=== PATIENT | female | born 1950 | race Caucasian/White ===

== ENCOUNTER 2017-05-31 07:10 | Observation (INO) | payer MEDICARE, BC ==
--- NOTE | 2017-05-31 07:21 | EDM.PDOC ---
ED HPI GENERAL MEDICAL PROBLEM - General Chief Complaint: Chest Pain Stated Complaint: chest pressure, dizziness Time Seen by Provider: 05/31/17 07:20 Source of Information: Reports: Patient History Limitations: Reports: No Limitations - History of Present Illness INITIAL COMMENTS - FREE TEXT/NARRATIVE: Patient is a 66-year-old female who presents to the ER with chief complaint of not feeling her usual self she feels chest tightness and also a tightness around her arms. Onset: Today Location: Reports: Chest Quality: Reports: Pressure Severity: Mild Improves with: Reports: None Worsens with: Reports: None Context: Reports: Other (Illness) Associated Symptoms: Reports: Chest Pain (Chest pressure) Treatments FACILITIES ADMINISTRATOR: Reports: Acetaminophen, Aspirin chest pain Pain Score (Numeric/FACES): 3 - Related Data Allergies Allergy/AdvReac Type Severity Reaction Status Date / Time Sulfa (Sulfonamide Allergy Itching Verified 05/31/17 07:39 Antibiotics) Home Meds: Home Meds Aspirin/Acetaminophen/Caffeine [Ra Pain Reliever Tablet] 1 each PO Q4HR PRN [History] Social & Family History - Tobacco Use Years of Tobacco use: 40 Second Hand Smoke Exposure: No - Alcohol Use Days Per Week of Alcohol Use: 1 (2 times per month, no previous DWI, etc.) Number of Drinks Per Day: 4 (Usually beer) Total Drinks Per Week: 4 - Recreational Drug Use Recreational Drug Use: No Drug Use in Last 12 Months: No Recreational Drug Last Use: 3 sodas per week, 1 coffee per day - Living Situation & Occupation Living situation: Reports: Occupation: Employed ED ROS GENERAL - Review of Systems Review Of Systems: See Below Constitutional: Reports: Weakness (Arms), Fatigue HEENT: Reports: No Symptoms Respiratory: Reports: No Symptoms Cardiovascular: Reports: Blood Pressure Problem, Lightheadedness Endocrine: Reports: No Symptoms GI/Abdominal: Reports: No Symptoms : Reports: Frequency Musculoskeletal: Reports: Arm Pain (Arm pressure), Muscle Pain (History of muscle spasms) Skin: Reports: No Symptoms Neurological: Reports: No Symptoms Psychiatric: Reports: No Symptoms ED EXAM, GENERAL - Physical Exam Exam: See Below Exam Limited By: No Limitations General Appearance: Alert, WD/WN, Mild Distress, Moderate Distress Ears: Normal External Exam, Normal Canal, Hearing Grossly Normal, Normal TMs Ear Exam: Bilateral Ear: Auricle Normal, Canal Normal, TM normal Nose: Normal Inspection Throat/Mouth: Normal Inspection, Normal Lips, Normal Teeth, Normal Gums, Normal Oropharynx, Normal Voice, No Airway Compromise Head: Atraumatic, Normocephalic Neck: Normal Inspection, Supple, Non-Tender, Full Range of Motion Respiratory/Chest: No Respiratory Distress, Lungs Clear, Normal Breath Sounds, No Accessory Muscle Use, Chest Non-Tender Cardiovascular: Regular Rate, Rhythm GI/Abdominal: Normal Bowel Sounds, Soft, Non-Tender, No Organomegaly, No Distention, No Abnormal Bruit, No Mass (Female) Exam: Deferred Rectal (Female) Exam: Deferred (`) Back Exam: Normal Inspection, Full Range of Motion, NT Extremities: Normal Inspection, Normal Range of Motion, Non-Tender, Normal Capillary Refill, No Pedal Edema Psychiatric: Normal Affect, Normal Mood Skin Exam: Warm, Dry, Intact, Normal Color, No Rash Course - Vital Signs Last Recorded V/S: Last Vital Signs Temp 98.8 F 05/31/17 07:30 Pulse 67 05/31/17 08:06 Resp 17 05/31/17 07:45 BP 149/84 H 05/31/17 08:06 Pulse Ox 99 05/31/17 07:45 - Orders/Labs/Meds Orders: Active Orders 24 hr Category Date Time Status Patient Status [ADT] Routine ADT 05/31/17 08:35 Active Antiembolic Devices [RC] .Routine Care 05/31/17 08:38 Active Bedrest Bathroom Privileges [RC] ASDIRECTED Care 05/31/17 08:34 Active EKG Documentation Completion [RC] ASDIRECTED Care 05/31/17 07:13 Active May Shower [RC] ASDIRECTED Care 05/31/17 08:34 Active Up With Assistance [RC] ASDIRECTED Care 05/31/17 08:34 Active VTE/DVT Education [RC] PER UNIT ROUTINE Care 05/31/17 08:38 Active Vital Signs [RC] Q4H Care 05/31/17 08:35 Active Heart Healthy Diet [DIET] Diet 05/31/17 Lunch Active Chest 1V Frontal [CR] Stat Exams 05/31/17 07:13 Taken Sodium Chloride 0.9% [Saline Flush] Med 05/31/17 07:14 Active 10 ml FLUSH ASDIRECTED PRN DVT/VTE Prophylaxis Reflex [OM.PC] Routine Oth 05/31/17 08:34 Ordered Saline Lock Insert [OM.PC] Routine Oth 05/31/17 07:14 Ordered Medication Orders Sodium Chloride (Saline Flush) 10 ml FLUSH ASDIRECTED PRN PRN Reason: Keep Vein Open Last Admin: 05/31/17 08:07 Dose: 10 ml Labs: Laboratory Tests 05/31/17 05/31/17 05/31/17 Range/Units 07:35 07:35 07:35 WBC 7.5 (4.0-10.2) K/uL RBC 4.57 (3.77-5.09) M/uL Hgb 14.1 (11.7-15.5) g/dL Hct 42.0 (34.0-46.0) % MCV 91.9 (84.0-98.0) fL MCH 30.9 (28.2-33.3) pg MCHC 33.6 (31.7-36.0) g/dL RDW 12.4 (11.2-14.1) % Plt Count 231 (150-350) K/uL Neut % (Auto) 68.7 (45.0-80.0) % Lymph % (Auto) 19.2 (10.0-50.0) % [place] % (Auto) 7.9 (2.0-14.0) % Eos % (Auto) 3.9 (0.0-5.0) % Baso % (Auto) 0.3 (0.0-2.0) % Neut # (Auto) 5.17 (1.40-7.00) K/uL Lymph # (Auto) 1.44 (0.50-3.50) K/uL [place] # (Auto) 0.59 (0.00-1.00) K/uL Eos # (Auto) 0.29 (0.00-0.50) K/uL Baso # (Auto) 0.02 (0.00-0.20) K/uL Sodium 140 (136-145) mmol/L Potassium 4.0 (3.5-5.1) mmol/L Chloride 105 (98-107) mmol/L Carbon Dioxide 25.7 (21.0-32.0) mmol/L BUN 18 (7-18) mg/dL Creatinine 0.74 (0.51-1.17) mg/dL Est Cr Clr Drug Dosing 62.83 mL/min Estimated GFR (MDRD) > 60 mL/min Glucose 100 (74-106) mg/dL Hemoglobin A1c (4.3-5.7) % Calcium 8.9 (8.5-10.1) mg/dL Magnesium 2.0 (1.8-2.4) mg/dL Total Bilirubin 0.5 (0.2-1.0) mg/dL AST 21 (15-37) U/L ALT 25 (12-78) U/L Alkaline Phosphatase 80 (46-116) IU/L Troponin I 0.000 (0.000-0.056) ng/mL Total Protein 7.1 (6.4-8.2) g/dL Albumin 3.6 (3.4-5.0) g/dL Triglycerides 195 H (30-150) mg/dL Cholesterol 275 H (100-200) mg/dL LDL Cholesterol, Calc 191 H (0-100) mg/dL HDL Cholesterol 45 (40-60) mg/dL TSH, Ultra Sensitive 3.050 (0.358-3.740) mIU/mL 05/31/17 Range/Units 07:35 WBC (4.0-10.2) K/uL RBC (3.77-5.09) M/uL Hgb (11.7-15.5) g/dL Hct (34.0-46.0) % MCV (84.0-98.0) fL MCH (28.2-33.3) pg MCHC (31.7-36.0) g/dL RDW (11.2-14.1) % Plt Count (150-350) K/uL Neut % (Auto) (45.0-80.0) % Lymph % (Auto) (10.0-50.0) % [place] % (Auto) (2.0-14.0) % Eos % (Auto) (0.0-5.0) % Baso % (Auto) (0.0-2.0) % Neut # (Auto) (1.40-7.00) K/uL Lymph # (Auto) (0.50-3.50) K/uL [place] # (Auto) (0.00-1.00) K/uL Eos # (Auto) (0.00-0.50) K/uL Baso # (Auto) (0.00-0.20) K/uL Sodium (136-145) mmol/L Potassium (3.5-5.1) mmol/L Chloride (98-107) mmol/L Carbon Dioxide (21.0-32.0) mmol/L BUN (7-18) mg/dL Creatinine (0.51-1.17) mg/dL Est Cr Clr Drug Dosing mL/min Estimated GFR (MDRD) mL/min Glucose (74-106) mg/dL Hemoglobin A1c 6.0 H (4.3-5.7) % Calcium (8.5-10.1) mg/dL Magnesium (1.8-2.4) mg/dL Total Bilirubin (0.2-1.0) mg/dL AST (15-37) U/L ALT (12-78) U/L Alkaline Phosphatase (46-116) IU/L Troponin I (0.000-0.056) ng/mL Total Protein (6.4-8.2) g/dL Albumin (3.4-5.0) g/dL Triglycerides (30-150) mg/dL Cholesterol (100-200) mg/dL LDL Cholesterol, Calc (0-100) mg/dL HDL Cholesterol (40-60) mg/dL TSH, Ultra Sensitive (0.358-3.740) mIU/mL Meds: Medications Generic Name Dose Route Start Last Admin Trade Name Freq PRN Reason Stop Dose Admin Sodium Chloride 10 ml 05/31/17 07:14 05/31/17 08:07 Saline Flush FLUSH 10 ml ASDIRECTED PRN Administration Keep Vein Open Discontinued Medications Generic Name Dose Route Start Last Admin Trade Name Freq PRN Reason Stop Dose Admin Metoprolol Tartrate 5 mg 05/31/17 07:53 05/31/17 08:06 Lopressor IVPUSH 05/31/17 07:54 5 mg ONETIME ONE Administration Departure - Departure Time of Disposition: 09:00 Disposition: Refer to Observation Clinical Impression: Atypical chest pain - Discharge Information - My Orders Last 24 Hours: My Active Orders 05/31/17 07:13 EKG Documentation Completion [RC] ASDIRECTED Chest 1V Frontal [CR] Stat 05/31/17 07:14 Sodium Chloride 0.9% [Saline Flush] 10 ml FLUSH ASDIRECTED PRN Saline Lock Insert [OM.PC] Routine 05/31/17 08:34 Bedrest Bathroom Privileges [RC] ASDIRECTED May Shower [RC] ASDIRECTED Up With Assistance [RC] ASDIRECTED DVT/VTE Prophylaxis Reflex [OM.PC] Routine 05/31/17 08:35 Patient Status [ADT] Routine Vital Signs [RC] Q4H 05/31/17 08:38 Antiembolic Devices [RC] .Routine VTE/DVT Education [RC] PER UNIT ROUTINE 05/31/17 Lunch Heart Healthy Diet [DIET] - Assessment/Plan Admission H&P: Please use this note as an admission H&P Last 24 Hours: My Active Orders 05/31/17 07:13 EKG Documentation Completion [RC] ASDIRECTED Chest 1V Frontal [CR] Stat 05/31/17 07:14 Sodium Chloride 0.9% [Saline Flush] 10 ml FLUSH ASDIRECTED PRN Saline Lock Insert [OM.PC] Routine 05/31/17 08:34 Bedrest Bathroom Privileges [RC] ASDIRECTED May Shower [RC] ASDIRECTED Up With Assistance [RC] ASDIRECTED DVT/VTE Prophylaxis Reflex [OM.PC] Routine 05/31/17 08:35 Patient Status [ADT] Routine Vital Signs [RC] Q4H 05/31/17 08:38 Antiembolic Devices [RC] .Routine VTE/DVT Education [RC] PER UNIT ROUTINE 05/31/17 Lunch Heart Healthy Diet [DIET]
[2017-05-31] MEDS ORDERED: Metoprolol Tartrate 5 MG/5 ML SDV IVPUSH ONE (07:53)
[2017-05-31 08:03] LABS: CHLORIDE,CL 105 mmol/L (98-107); SODIUM,NA 140 mmol/L (136-145)
[2017-05-31] MEDS: Sodium Chloride 0.9% 10 ML Syringe FLUSH PRN ×2 (08:07→20:48)
[2017-06-01] MEDS: Sodium Chloride 0.9% 10 ML Syringe FLUSH PRN (09:17)
[2017-06-01 12:36] VITALS: BP 118/71
--- NOTE | 2017-06-01 14:34 | PCM.PN ---
- General Info Date of Service: 06/01/17 Functional Status: Reports: Pain Controlled, Other (arms still feel heavy) - Review of Systems General: Reports: Weakness, Other (dizziness) HEENT: Reports: Other (ears itchey) Pulmonary: Reports: No Symptoms Cardiovascular: Reports: No Symptoms Gastrointestinal: Reports: No Symptoms Genitourinary: Reports: No Symptoms Musculoskeletal: Reports: Neck Pain, Shoulder Pain Skin: Reports: No Symptoms Neurological: Reports: Dizziness Psychiatric: Reports: Depression, Anxiety - Patient Data Vitals - Most Recent: Last Vital Signs Temp 98.9 F 06/01/17 12:00 Pulse 79 06/01/17 12:00 Resp 14 06/01/17 12:00 BP 118/71 06/01/17 12:00 Pulse Ox 94 L 06/01/17 12:00 Weight - Most Recent: 177 lb I&O - Last 24 Hours: Intake & Output 05/31/17 06/01/17 06/01/17 22:59 06:59 14:59 Intake Total 200 800 600 Balance 200 800 600 Lab Results Last 24 Hours: Laboratory Results - last 24 hr 05/31/17 Range/Units 19:35 Troponin I 0.000 (0.000-0.056) ng/mL Med Orders - Current: Current Medications Sodium Chloride (Saline Flush) 10 ml FLUSH ASDIRECTED PRN PRN Reason: Keep Vein Open Last Admin: 06/01/17 09:17 Dose: 10 ml Discontinued Medications Metoprolol Tartrate (Lopressor) 5 mg IVPUSH ONETIME ONE Stop: 05/31/17 07:54 Last Admin: 05/31/17 08:06 Dose: 5 mg - Exam General: Alert, Cooperative, No Acute Distress HEENT: Pupils Equal, Pupils Reactive, EOMI, Mucous Membr. Moist/[place], Other ( ear canals not red, scant wax, TM non reddened) Neck: Trachea Midline, No JVD Lungs: Clear to Auscultation, Normal Respiratory Effort Cardiovascular: Regular Rate, Regular Rhythm GI/Abdominal Exam: Normal Bowel Sounds, Soft, Non-Tender, No Distention, No Mass (Female) Exam: Deferred Back Exam: Normal Inspection Extremities: Normal Inspection, Non-Tender, No Pedal Edema Skin: Warm, Dry, Intact Wound/Incisions: Healing Well Neurological: Other (horizonal nystagmus to the left) Psy/Mental Status: Alert, Anxious, Depressed - Problem List & Annotations (1) Atypical chest pain SNOMED Code(s): 479219136 Code(s): R07.89 - OTHER CHEST PAIN Status: Acute Current Visit: Yes (2) Leukocytosis SNOMED Code(s): 591911174 Code(s): D72.829 - ELEVATED WHITE BLOOD CELL COUNT, UNSPECIFIED Status: Acute Priority: Medium Current Visit: No Onset Date: 01/08/14 Annotation /Comment:: Persistent WBC elevation likely secondary to yesterday's Depo-Medrol injection. Repeat CBC at followup. (3) CHF, Congestive heart failure SNOMED Code(s): 90230688 Code(s): I50.9 - HEART FAILURE, UNSPECIFIED Status: Chronic Priority: High Current Visit: No Onset Date: 01/09/14 Annotation/Comment:: Newly diagnosed today with echocardiogram to be conducted on an outpatient basis with further cardiac workup, etc. as above. Work excuse given from 01/08-01/13 (4) COPD, Mild chronic obstructive pulmonary disease SNOMED Code(s): 624003528 Code(s): J44.9 - CHRONIC OBSTRUCTIVE PULMONARY DISEASE, UNSPECIFIED Status : Chronic Priority: Medium Current Visit: No Annotation/Comment:: COPD by chest x-ray. PFTs should be conducted once her cardiac status has been determined. Tobacco cessation encouraged with information provided in the emergency room yesterday (5) HTN, Benign hypertension SNOMED Code(s): 21506431 Code(s): I10 - ESSENTIAL (PRIMARY) HYPERTENSION Status: Chronic Priority : High Current Visit: No Onset Date: 01/08/14 Annotation/Comment:: Newly diagnosed with close observation by her regular provider with repeat blood work as per discharge instructions (6) Hyperlipidemia SNOMED Code(s): 61089835 Code(s): E78.5 - HYPERLIPIDEMIA, UNSPECIFIED Status: Chronic Priority: High Current Visit: No Onset Date: 01/09/14 Annotation/Comment:: Newly diagnosed today with Zocor to be initiated on an outpatient basis. Note additional hyperglycemia, however normal glycosylated hemoglobin with improvement of her sugars likely with compliance with her low-cholesterol diet (7) Mixed anxiety and depressive disorder SNOMED Code(s): 847850041 Code(s): F41.8 - OTHER SPECIFIED ANXIETY DISORDERS Status: Chronic Priority: High Current Visit: No Annotation/Comment:: The patient is requesting treatment for her depression since this has progressed since the of her mother as above. Emotional support was provided. Additionally counseling as needed on an outpatient basis (8) Osteoarthritis SNOMED Code(s): 353433686 Code(s): M19.90 - UNSPECIFIED OSTEOARTHRITIS, UNSPECIFIED SITE Status: Chronic Priority: High Current Visit: No Onset Date: 01/08/14 Annotation /Comment:: Her arthritis and suprascapular nerve inflammation is likely the etiology of her current symptoms. A mixture of 1 ml of Depo-Medrol, 80 mg/mL and 2.0 ml of 1% Xylocaine was given as a trigger point yesterday in the emergency room with minimal improvement. She does respond to chiropractic treatment and acupuncture by her history with further followup depending on her clinical course. Add Flexeril as a muscle relaxant. She gets better response with aspirin rather than ibuprofen by her history. Additional physical therapy consultation as needed - Problem List Review Problem List Initiated/Reviewed/Updated: Yes - Plan Plan:: 06/01/17 Lainey Hawk MD Feeling better. Troponins negative. Discussed high blood pressure and depression. She feels well enough to go home. Follow up in the clinic.
--- NOTE | 2017-06-01 14:49 | PCM.DCSUM1 ---
Discharge Summary - Discharge Data Discharge Date: 06/01/17 Discharge Disposition: Home, Self-Care 01 Condition: Good - Discharge Diagnosis/Problem(s) (1) Atypical chest pain SNOMED Code(s): 941150305 ICD Code: R07.89 - OTHER CHEST PAIN Status: Acute Current Visit: Yes (2) Leukocytosis SNOMED Code(s): 746311082 ICD Code: D72.829 - ELEVATED WHITE BLOOD CELL COUNT, UNSPECIFIED Status: Acute Priority: Medium Current Visit: No Onset Date: 01/08/14 Problem Details: Persistent WBC elevation likely secondary to yesterday's Depo-Medrol injection. Repeat CBC at followup. (3) CHF, Congestive heart failure SNOMED Code(s): 91890463 ICD Code: I50.9 - HEART FAILURE, UNSPECIFIED Status: Chronic Priority: High Current Visit: No Onset Date: 01/09/14 Problem Details: Newly diagnosed today with echocardiogram to be conducted on an outpatient basis with further cardiac workup, etc. as above. Work excuse given from 01/08-01/13 (4) COPD, Mild chronic obstructive pulmonary disease SNOMED Code(s): 865599276 ICD Code: J44.9 - CHRONIC OBSTRUCTIVE PULMONARY DISEASE, UNSPECIFIED Status : Chronic Priority: Medium Current Visit: No Problem Details: COPD by chest x-ray. PFTs should be conducted once her cardiac status has been determined. Tobacco cessation encouraged with information provided in the emergency room yesterday (5) HTN, Benign hypertension SNOMED Code(s): 84344729 ICD Code: I10 - ESSENTIAL (PRIMARY) HYPERTENSION Status: Chronic Priority : High Current Visit: No Onset Date: 01/08/14 Problem Details: Newly diagnosed with close observation by her regular provider with repeat blood work as per discharge instructions (6) Hyperlipidemia SNOMED Code(s): 23116635 ICD Code: E78.5 - HYPERLIPIDEMIA, UNSPECIFIED Status: Chronic Priority: High Current Visit: No Onset Date: 01/09/14 Problem Details: Newly diagnosed today with Zocor to be initiated on an outpatient basis. Note additional hyperglycemia, however normal glycosylated hemoglobin with improvement of her sugars likely with compliance with her low-cholesterol diet (7) Mixed anxiety and depressive disorder SNOMED Code(s): 148749023 ICD Code: F41.8 - OTHER SPECIFIED ANXIETY DISORDERS Status: Chronic Priority: High Current Visit: No Problem Details: The patient is requesting treatment for her depression since this has progressed since the of her mother as above. Emotional support was provided. Additionally counseling as needed on an outpatient basis (8) Osteoarthritis SNOMED Code(s): 597766862 ICD Code: M19.90 - UNSPECIFIED OSTEOARTHRITIS, UNSPECIFIED SITE Status: Chronic Priority: High Current Visit: No Onset Date: 01/08/14 Problem Details: Her arthritis and suprascapular nerve inflammation is likely the etiology of her current symptoms. A mixture of 1 ml of Depo-Medrol, 80 mg/mL and 2.0 ml of 1% Xylocaine was given as a trigger point yesterday in the emergency room with minimal improvement. She does respond to chiropractic treatment and acupuncture by her history with further followup depending on her clinical course. Add Flexeril as a muscle relaxant. She gets better response with aspirin rather than ibuprofen by her history. Additional physical therapy consultation as needed - Patient Instructions Diet: Regular Diet as Tolerated Activity: Rest and Relax Today Driving: May Drive Today Showering/Bathing: May Shower - Discharge Plan Prescriptions/Med Rec: Citalopram Hydrobromide [Celexa] 20 mg PO DAILY #45 tablet Metoprolol Succinate 25 mg PO DAILY #90 tab.er.24h Home Medications: Home Meds Aspirin/Acetaminophen/Caffeine [Ra Pain Reliever Tablet] 1 each PO Q4HR PRN [History] Citalopram Hydrobromide [Celexa] 20 mg PO DAILY #45 tablet 06/01/17 [Rx] Metoprolol Succinate 25 mg PO DAILY #90 tab.er.24h 06/01/17 [Rx] Forms: ED Department Discharge Referrals: Debbie Christie MD [Primary Care Provider] - - Discharge Summary/Plan Comment DC Time >30 min.: No Discharge Summary/Plan Comment: 06/01/17 Follow up with [facility] at [facility] in 1-2 weeks. Sooner if not feeling better. - Patient Data Vitals - Most Recent: Last Vital Signs Temp 98.9 F 06/01/17 12:00 Pulse 79 06/01/17 12:00 Resp 14 06/01/17 12:00 BP 118/71 06/01/17 12:00 Pulse Ox 94 L 06/01/17 12:00 Weight - Most Recent: 177 lb I&O - Last 24 hours: Intake & Output 05/31/17 06/01/17 06/01/17 22:59 06:59 14:59 Intake Total 200 800 600 Balance 200 800 600 Lab Results - Last 24 hrs: Laboratory Results - last 24 hr 05/31/17 Range/Units 19:35 Troponin I 0.000 (0.000-0.056) ng/mL Med Orders - Current: Current Medications Sodium Chloride (Saline Flush) 10 ml FLUSH ASDIRECTED PRN PRN Reason: Keep Vein Open Last Admin: 06/01/17 09:17 Dose: 10 ml Discontinued Medications Metoprolol Tartrate (Lopressor) 5 mg IVPUSH ONETIME ONE Stop: 05/31/17 07:54 Last Admin: 05/31/17 08:06 Dose: 5 mg *Q Meaningful Use (DIS) - VTE *Q VTE Criteria *Q: - Stroke *Q Stroke Criteria *Q: - AMI *Q AMI Criteria *Q:
== END 2017-06-01 15:10 | disposition home or self-care (01) ==
LOC: LL.ED 07:10 → LL.MS 08:37
PROVIDERS: ADMIT Family Medicine; ATTEND Family Medicine
DX: R07.89 Other chest pain (principal); D72.829 Elevated white blood cell count, unspecified; I50.9 Heart failure, unspecified; J44.9 Chronic obstructive pulmonary disease, unspecified; I10 Essential (primary) hypertension; E78.5 Hyperlipidemia, unspecified; F41.8 Other specified anxiety disorders; M19.90 Unspecified osteoarthritis, unspecified site; Z79.82 Long term (current) use of aspirin; Z79.899 Other long term (current) drug therapy; Z88.2 Allergy status to sulfonamides
CPT/HCPCS: 36415; 71045; 80053; 80061; 83036; 83735; 84443; 84484; 85025; 93005; 96374; 99285; G0378; J7050; 99220; J3490

== ENCOUNTER 2019-11-02 10:35 | Day surgery (SDC) | payer MEDICARE, BC ==
[~2019-11-02 10:35] MED LIST: Sodium Chloride 0.9% 10 ML Syringe FLUSH PRN
[2019-11-02] MEDS: Lactated Ringers 1,000 ML IV SCH (11:25)
[2019-11-02] MEDS ORDERED: Propofol 200 MG/20 ML SDV ONE ×3 (11:33→12:31)
--- NOTE | 2019-11-02 12:32 | PCM.PN ---
- General Info Date of Service: 11/02/19 - Review of Systems Systems Review Comment:: 69-year-old female referred for EGD and colonoscopy. She has had some symptoms of upper abdominal pain and bloating. She also has not had a colonoscopy for over 15 years. She has noted a change in bowel pattern but no rectal bleeding. Patient's recent history and physical is reviewed and no significant changes are noted. I have discussed the proposed colonoscopy and EGD with the patient. Risks such as but not limited to bleeding and GI injury reviewed. She agrees to proceed. - Patient Data Med Orders - Current: Current Medications Lactated Ringer's (Ringers, Lactated) 1,000 mls @ 125 mls/hr IV ASDIRECTED PRABHAKAR Sodium Chloride (Saline Flush) 10 ml FLUSH ASDIRECTED PRN PRN Reason: Keep Vein Open Discontinued Medications Propofol (Diprivan 20 Ml) Confirm Administered Dose 400 mg .ROUTE .STK-MED ONE Stop: 11/02/19 11:34 Sepsis Event Note - Focused Exam Date Exam was Performed: 11/02/19 Time Exam was Performed: 12:30 - Problem List Review Problem List Initiated/Reviewed/Updated: Yes - Assessment Assessment:: Abdominal bloating Change in bowel pattern - Plan Plan:: EGD and colonoscopy
--- NOTE | 2019-11-02 13:17 | PCM.OPNOTE ---
- General Post-Op/Procedure Note Date of Surgery/Procedure: 11/02/19 Operative Procedure(s): EGD with biopsy and colonoscopy Findings: Mild gastritis Moderate sigmoid diverticulosis Internal hemorrhoids Pre Op Diagnosis: Upper abdominal pain. Change in bowel habits Post-Op Diagnosis: Gastritis. Sigmoid diverticulosis. Hemorrhoids Anesthesia Technique: MAC Primary Surgeon: Curt Mcleod Pathology: Biopsies gastric antrum EBL in mLs: 2 Complications: None Condition: Good
[2019-11-02 13:33] VITALS: BP 143/90; PULSE 62
--- NOTE | 2019-11-02 18:22 | OR ---
Date of Procedure: 11/02/2019 PREOPERATIVE DIAGNOSIS: Upper abdominal pain and change in bowel habits. POSTOPERATIVE DIAGNOSES: 1. Gastritis. 2. Sigmoid diverticulosis. 3. Hemorrhoids. OPERATION PERFORMED: Esophagogastroduodenoscopy with biopsy and colonoscopy. INDICATIONS FOR SURGERY: This 69-year-old female is referred for upper endoscopy. She has been having some upper abdominal discomfort and bloating. It has also been many years since her last colonoscopy and she has noticed some change in her bowel pattern recently. FINDINGS: On upper endoscopy, the patient has a mild degree of inflammation in the antrum with some localized areas of mild hyperemia. No ulcerations or other abnormalities were seen during her exam. On colonoscopy, there is moderate-to- extensive sigmoid diverticulosis, although this does not appear to be acutely inflamed. She also has some medium-sized internal hemorrhoids. PROCEDURE IN DETAIL: The patient was taken to the operating room. She was given intravenous sedation, and with her in the left lateral decubitus position, the Olympus gastroscope was advanced through a mouth guard into the oral cavity. Under direct visualization, the scope was carefully advanced through the oropharynx and down into the esophagus and advanced through the stomach and into the duodenum. Examination to the third portion was performed, and after examining the duodenum, the scope was withdrawn back into the stomach where full examination including retroflexed examination of the fundus was carried out. Random biopsies of the antrum were taken to rule out H. pylori. The GE junction was then examined and the esophagus as the scope was withdrawn. Attention was turned to colonoscopy. Digital rectal exam was performed showing no rectal masses. The Olympus colonoscope was inserted into the rectum. Retroflexed examination of the rectal canal was performed. The scope was carefully advanced under direct visualization through the entire length of the colon until the cecum was reached. Cecal acquisition was confirmed by noting the normal internal cecal anatomy including the appendiceal orifice and ileocecal valve. The light was also noted to transilluminate the abdominal wall in the right lower quadrant. After examining the cecum, the scope was slowly withdrawn sequentially re-examining the colonic segments until the entire colon and rectum had been fully examined. The scope was removed and the patient was taken from the operating room in satisfactory condition. ESTIMATED BLOOD LOSS: 2 mL. COMPLICATIONS: None. PROGNOSIS: Good. BERNARD Mcleod MD /[id number]
== END 2019-11-02 14:09 | disposition home or self-care (01) ==
LOC: LL.SDS 10:35
PROVIDERS: ATTEND Surgery
DX: K29.70 Gastritis, unspecified, without bleeding (principal); K31.9 Disease of stomach and duodenum, unspecified; K64.8 Other hemorrhoids; K57.30 Diverticulosis of large intestine without perforation or abscess without bleeding; E78.2 Mixed hyperlipidemia; F41.9 Anxiety disorder, unspecified; F33.0 Major depressive disorder, recurrent, mild; K21.9 Gastro-esophageal reflux disease without esophagitis; G89.29 Other chronic pain; M25.511 Pain in right shoulder; Z79.899 Other long term (current) drug therapy; Z79.82 Long term (current) use of aspirin; Z88.2 Allergy status to sulfonamides; Z87.891 Personal history of nicotine dependence
CPT/HCPCS: J2704; J7120

== ENCOUNTER 2022-07-30 07:55 | Day surgery (SDC) | payer MEDICARE, BC ==
[~2022-07-30 07:55] MED LIST changes: +Lactated Ringers 1,000 ML IV SCH
[2022-07-30] MEDS ORDERED: Propofol 200 MG/20 ML SDV ONE ×2 (07:59)
[2022-07-30 18:02] VITALS: BP 155/84; PULSE 72
== END 2022-07-30 12:15 | disposition home or self-care (01) ==
LOC: LL.SDS 07:55
PROVIDERS: ATTEND Surgery
DX: R19.4 Change in bowel habit (principal); R10.9 Unspecified abdominal pain; R19.7 Diarrhea, unspecified; K57.30 Diverticulosis of large intestine without perforation or abscess without bleeding; I10 Essential (primary) hypertension; E66.9 Obesity, unspecified; F41.9 Anxiety disorder, unspecified; F33.0 Major depressive disorder, recurrent, mild; M35.3 Polymyalgia rheumatica; M54.12 Radiculopathy, cervical region; F17.210 Nicotine dependence, cigarettes, uncomplicated; Z88.2 Allergy status to sulfonamides; Z88.1 Allergy status to other antibiotic agents; Z79.899 Other long term (current) drug therapy; Z79.82 Long term (current) use of aspirin; Z98.890 Other specified postprocedural states; Z68.34 Body mass index [BMI] 34.0-34.9, adult
CPT/HCPCS: J7120

== ENCOUNTER 2022-07-31 13:38 | Observation (INO) | payer OTHER, MEDICARE, BC ==
[2022-07-31] MEDS ORDERED: Sodium Chloride 0.9% 10 ML Syringe FLUSH PRN (13:52)
[2022-07-31 14:28] LABS: CHLORIDE,CL 106 mmol/L (98-107); SODIUM,NA 141 mmol/L (136-145)
[2022-07-31 14:29] LABS: ESTIMATED GFR 79 mL/min (>=60)
[2022-07-31] MEDS ORDERED: Lidocaine 1% 5 ML VIAL INJECT ONE (14:47)
[2022-07-31] MEDS ORDERED: Diphtheria,Pertussis(Acell),Tetanus Vaccine 0.5 ML Syringe IM ONE (15:20)
[2022-07-31] MEDS ORDERED: Bacitracin/Neomycin/Polymyxin B Oint 0.9 GM U/D Packet TOP ONE (15:20)
[2022-07-31] MEDS ORDERED: traMADol 50 MG Tab PO PRN (19:39)
[2022-07-31] MEDS ORDERED: Acetaminophen 500 MG Tab PO PRN (19:40)
[2022-07-31] MEDS ORDERED: Ketorolac 10 MG Tab PO PRN (19:40)
[2022-08-01] MEDS ORDERED: Metoprolol Succinate 25 MG Tab.ER PO SCH (08:00)
[2022-08-01 08:21] VITALS: BP 144/79; PULSE 64
== END 2022-08-01 12:45 | disposition home or self-care (01) ==
LOC: LL.ED 13:38 → LL.MS 16:03
PROVIDERS: ADMIT Emergency Medicine; ATTEND Emergency Medicine
DX: S61.411A Laceration without foreign body of right hand, initial encounter (principal); S60.041A Contusion of right ring finger without damage to nail, initial encounter; F41.9 Anxiety disorder, unspecified; F32.A Depression, unspecified; I10 Essential (primary) hypertension; M19.90 Unspecified osteoarthritis, unspecified site; J44.9 Chronic obstructive pulmonary disease, unspecified; F41.3 Other mixed anxiety disorders; E78.5 Hyperlipidemia, unspecified; Z88.2 Allergy status to sulfonamides; Z88.8 Allergy status to other drugs, medicaments and biological substances; Z23 Encounter for immunization; V49.9XXA Car occupant (driver) (passenger) injured in unspecified traffic accident, initial encounter
CPT/HCPCS: 12001; 36415; 71045; 72125; 72170; 73120-RT; 80053; 81001; 85025; 90471; 90715; 99285-25; A9270-GY; G0378; J3490